=== PATIENT | female | born 1935 | race Caucasian/White ===

== ENCOUNTER 2017-04-21 19:47 | Inpatient (IN) | payer OTHER ==
[~2017-04-21] VITALS: Ht 167.6 cm; Wt 59.0 kg
[~2017-04-21 19:47] MED LIST: ASPIR-LOW81 MG PO; ATENOLOL50 MG PO; ATORVASTATIN CA40 MG PO; MEMANTINE HCL10 MG PO; OMEPRAZOLE20 M2 PO; PRAVASTATIN SOD10 MG PO; SEROQUEL12.5 MG PO; ULTRAM50 MG PO
[2017-04-21 21:05] LABS: HEMATOCRIT 34.9 % (36.0-46.0); MCH 32.6 PG (29.0-34.0); MCHC 31.8 G/DL (30.0-36.0); MCV 102.6 FL (83-99); MEAN PLAT.VOLUME 10.7 uM^3 (9.5-12.4); PLATELET COUNT 155 K/uL (156-360); RBC DIS.WIDTH-CV 13.4 % (11.8-14.6); RBC DIS.WIDTH-SD 51.1 % (39-53); WHITE BLOOD COUNT 9.5 K/uL (4.1-10.2)
[2017-04-21 21:05] LABS: POINT-OF-CARE METER ID UU14100415
[2017-04-21 21:12] LABS: CHLORIDE 107 mEq/L (99-109); POTASSIUM 4.7 mEq/L (3.7-5.4); SODIUM 142 mEq/L (136-147)
[2017-04-21 21:15] LABS: GLUCOSE 140 mg/dL (70-99)
[2017-04-21 21:16] LABS: ANION GAP 8 MEQ/L (2-14); TOTAL BILIRUBIN 0.4 mg/dL (0.0-1.0)
[2017-04-21 21:18] LABS: ALKALINE PHOSPHATASE 350 IU/L (3-129); GFR ESTIMATE (CALCULATED) 33 mL/min/
[2017-04-21 21:19] LABS: UREA NITROGEN (BUN) 31 mg/dL (9-23)
[2017-04-21 22:01] LABS: ADD MIUA? NO; BILIRUBIN NEGATIVE; BLOOD NEGATIVE; COLOR STRAW ((YELLOW)); GLUCOSE (STRIP) NEGATIVE; KETONES NEGATIVE; LEUKOCYTES NEGATIVE; NITRITE NEGATIVE; PROTEIN (STRIP) NEGATIVE; SPECIFIC GRAVITY 1.005 (1.000-1.030); UCUL ADDED? NO; UROBILINOGEN 0.2 MG/DL (0.2-1.0)
[2017-04-22] MEDS ORDERED: SULAR20 MG PO (00:40)
[2017-04-22] MEDS ORDERED: ZOLOFT25 MG PO (00:41)
[2017-04-22] MEDS ORDERED: CENTRUM SILVER1 EAC3 PO (00:41)
[2017-04-22] MEDS ORDERED: QUETIAPINE FUMA25 MG PO (00:41)
[2017-04-22] MEDS ORDERED: STOOL SOFTENER100 M1 PO (00:42)
[2017-04-22] MEDS ORDERED: CALCIUM 600 +1 EA12 PO (00:42)
[2017-04-22] MEDS ORDERED: CRANBERRY250 MG PO (00:42)
[2017-04-22 03:14] VITALS: BP 177/77
[2017-04-22 07:20] VITALS: BP 146/72
[2017-04-22 11:19] VITALS: BP 167/97
[2017-04-22 12:35] LABS: HEMATOCRIT 38.9 % (36.0-46.0); MCH 32.7 PG (29.0-34.0); MCHC 32.1 G/DL (30.0-36.0); MCV 101.8 FL (83-99); MEAN PLAT.VOLUME 10.7 uM^3 (9.5-12.4); PLATELET COUNT 162 K/uL (156-360); RBC DIS.WIDTH-CV 13.5 % (11.8-14.6); RED BLOOD COUNT 3.82 M/uL (3.80-5.20); WHITE BLOOD COUNT 9.3 K/uL (4.1-10.2)
[2017-04-22 12:48] LABS: CHLORIDE 105 mEq/L (99-109); POTASSIUM 4.5 mEq/L (3.7-5.4); SODIUM 144 mEq/L (136-147)
[2017-04-22 12:52] LABS: ANION GAP 10 MEQ/L (2-14)
[2017-04-22 12:53] LABS: GLUCOSE 86 mg/dL (70-99); TOTAL BILIRUBIN 0.8 mg/dL (0.0-1.0)
[2017-04-22 12:54] LABS: ALKALINE PHOSPHATASE 363 IU/L (3-129)
[2017-04-22 12:55] LABS: GFR ESTIMATE (CALCULATED) 42 mL/min/
[2017-04-22 12:56] LABS: DIRECT BILIRUBIN 0.4 mg/dL (0.0-0.3); UREA NITROGEN (BUN) 27 mg/dL (9-23)
[2017-04-22 16:07] VITALS: BP 123/56
[2017-04-22 18:54] VITALS: BP 152/69
[2017-04-22 23:14] VITALS: BP 140/81
[2017-04-23 03:51] VITALS: BP 149/68
[2017-04-23 07:14] LABS: HEMATOCRIT 35.1 % (36.0-46.0); MCH 33.5 PG (29.0-34.0); MCHC 32.8 G/DL (30.0-36.0); MCV 102.3 FL (83-99); MEAN PLAT.VOLUME 11.1 uM^3 (9.5-12.4); PLATELET COUNT 152 K/uL (156-360); RBC DIS.WIDTH-CV 13.8 % (11.8-14.6); RBC DIS.WIDTH-SD 52.2 % (39-53); RED BLOOD COUNT 3.43 M/uL (3.80-5.20); WHITE BLOOD COUNT 8.5 K/uL (4.1-10.2)
[2017-04-23 07:31] VITALS: BP 127/63
[2017-04-23 07:34] LABS: PROTHROMBIN TIME 10.6 (9.2-11.2)
[2017-04-23 07:38] LABS: ANION GAP 6 MEQ/L (2-14); CHLORIDE 108 MEQ/L (99-109); GFR ESTIMATE (CALCULATED) 46 mL/min/; GLUCOSE 75 mg/dL (70-99); IRON 100 MCG/DL (35-150); POTASSIUM 4.2 MEQ/L (3.7-5.4); SAMPLE HEMOLYSIS CHECK 0; SAMPLE ICTERIC CHECK 0; SAMPLE LIPEMIA CHECK 0; SODIUM 142 MEQ/L (136-147); UREA NITROGEN (BUN) 26 mg/dL (9-23)
[2017-04-23 08:13] LABS: FERRITIN 376 NG/ML (10-291)
[2017-04-23 10:20] LABS: ALKALINE PHOSPHATASE 317 IU/L (3-129); DIRECT BILIRUBIN 0.2 mg/dL (0.0-0.3); TOTAL BILIRUBIN 0.6 MG/DL (0.0-1.0)
[2017-04-23 11:05] LABS: HPCA INDEX 0.16
[2017-04-23 11:07] LABS: ANTI-HEPATITIS A VIRUS (IGM) Nonreactive; ANTI-HEPATITIS B CORE (IGM) Nonreactive; HAV INDEX 0.13; HBC IgM INDEX 0.06
[2017-04-23 11:31] VITALS: BP 137/67
[2017-04-23 15:10] VITALS: BP 139/65
[2017-04-23 19:42] VITALS: BP 105/70
[2017-04-23 23:10] VITALS: BP 113/55
[2017-04-24 03:56] VITALS: BP 111/69
[2017-04-24 07:38] VITALS: BP 136/65
[2017-04-24 07:45] LABS: BASOPHIL COUNT 0.1 K/uL (0-0.1); EOSINOPHIL (%) 2.9 % (0-5); EOSINOPHIL COUNT 0.3 K/uL (0-0.3); HEMATOCRIT 35.6 % (36.0-46.0); IMMATURE GRANULOCYTE (%) 0.5 % (0.0-0.7); IMMATURE GRANULOCYTE COUNT 0.1 K/uL; INSTRUMENT ABS NEUTROPHIL CT 5.4 K/uL; LYMPHOCYTE COUNT 2.6 K/uL (1.0-2.8); MCHC 32.3 G/DL (30.0-36.0); MCV 102.3 FL (83-99); MEAN PLAT.VOLUME 11.1 uM^3 (9.5-12.4); MONOCYTE (%) 11.4 % (3-12); MONOCYTE COUNT 1.1 K/uL (0-0.8); NEUTROPHIL COUNT 5.4 K/uL (1.8-6.4); PLATELET COUNT 164 K/uL (156-360); RBC DIS.WIDTH-CV 13.8 % (11.8-14.6); RBC DIS.WIDTH-SD 51.7 % (39-53); RED BLOOD COUNT 3.48 M/uL (3.80-5.20); WHITE BLOOD COUNT 9.4 K/uL (4.1-10.2)
[2017-04-24 08:40] LABS: ALKALINE PHOSPHATASE 368 IU/L (3-129); ANION GAP 6 MEQ/L (2-14); CHLORIDE 104 MEQ/L (99-109); GFR ESTIMATE (CALCULATED) 42 mL/min/; GLUCOSE 75 mg/dL (70-99); SAMPLE HEMOLYSIS CHECK 0; SAMPLE ICTERIC CHECK 0; SAMPLE LIPEMIA CHECK 0; SODIUM 141 MEQ/L (136-147); UREA NITROGEN (BUN) 26 mg/dL (9-23)
[2017-04-24 08:41] LABS: TOTAL BILIRUBIN 0.8 MG/DL (0.0-1.0)
[2017-04-24 11:50] VITALS: BP 105/49
[2017-04-24] MEDS ORDERED: ASPIR-LOW81 MG PO (15:23)
[2017-04-24 15:58] VITALS: BP 122/62
== END 2017-04-24 17:15 | disposition home health service (06) | DRG 69 ==
LOC: EME 19:47 → EDOF 04-22 01:03 → 5WEST 04-22 03:00 → 5SOUTH 04-22 13:02 → 5WEST 04-22 13:02 → 5SOUTH 04-22 13:02 → 5WEST 04-22 13:02 → 5SOUTH 04-22 17:37
PROVIDERS: Emergency Medicine; Hospitalist; Internal Medicine; Physician Assistant
DX: G45.9 Transient cerebral ischemic attack, unspecified (principal); F05 Delirium due to known physiological condition; R47.01 Aphasia; E78.5 Hyperlipidemia, unspecified; I65.23 Occlusion and stenosis of bilateral carotid arteries; G30.8 Other Alzheimer's disease; F02.80 Dementia in other diseases classified elsewhere, unspecified severity, without behavioral disturbance, psychotic disturbance, mood disturbance, and anxiety; N18.3 Chronic kidney disease, stage 3 (moderate); I12.9 Hypertensive chronic kidney disease with stage 1 through stage 4 chronic kidney disease, or unspecified chronic kidney disease; E86.0 Dehydration; N17.9 Acute kidney failure, unspecified; F32.9 Major depressive disorder, single episode, unspecified; G31.9 Degenerative disease of nervous system, unspecified; K21.9 Gastro-esophageal reflux disease without esophagitis; Z87.891 Personal history of nicotine dependence
CPT/HCPCS: 70450; 70551; 71020; 74176; 76705; 80048; 80053; 80074; 80076; 81003; 82140; 82607; 82728; 82948; 83540; 84466; 85025; 85027; 85610; 93005; 93306; 93880; 99281; 99285; J1644; J7030

== ENCOUNTER 2017-12-18 11:28 | Emergency (ER) | payer OTHER ==
[~2017-12-18] VITALS: Ht 170.2 cm; Wt 58.1 kg
[~2017-12-18 11:28] MED LIST changes: +CALCIUM 600 +1 EA12 PO; +CENTRUM SILVER1 EAC3 PO; +CRANBERRY250 MG PO; +QUETIAPINE FUMA25 MG PO; +STOOL SOFTENER100 M1 PO; +SULAR20 MG PO; +ZOLOFT25 MG PO
[2017-12-18 12:51] LABS: BASOPHIL (%) 0.6 % (0-1); EOSINOPHIL (%) 2.1 % (0-5); EOSINOPHIL COUNT 0.2 K/uL (0-0.3); HEMATOCRIT 39.3 % (36.0-46.0); HEMOGLOBIN 12.8 G/DL (11.9-15.5); IMMATURE GRANULOCYTE (%) 0.7 % (0.0-0.7); LYMPHOCYTE (%) 10.7 % (15-42); LYMPHOCYTE COUNT 0.8 K/uL (1.0-2.8); MCH 32.5 PG (29.0-34.0); MCHC 32.6 G/DL (30.0-36.0); MCV 99.7 FL (83-99); MONOCYTE (%) 8.9 % (3-12); MONOCYTE COUNT 0.6 K/uL (0-0.8); NEUTROPHIL COUNT 5.5 K/uL (1.8-6.4); PLATELET COUNT 178 K/uL (156-360); RBC DIS.WIDTH-CV 12.4 % (11.8-14.6); RED BLOOD COUNT 3.94 M/uL (3.80-5.20); WHITE BLOOD COUNT 7.1 K/uL (4.1-10.2)
[2017-12-18 13:17] LABS: CHLORIDE 103 mEq/L (99-109); POTASSIUM 4.4 mEq/L (3.7-5.4); SODIUM 141 mEq/L (136-147)
[2017-12-18 13:19] LABS: GLUCOSE 102 mg/dL (70-99)
[2017-12-18 13:23] LABS: CREATININE 1.3 mg/dL (0.6-1.3); GFR ESTIMATE (CALCULATED) 42 mL/min/
[2017-12-18 13:24] LABS: UREA NITROGEN (BUN) 28 mg/dL (9-23)
[2017-12-18 13:27] LABS: TROP-I INTERPRETATION NEGATIVE; TROPONIN-I < 0.01 ng/mL (0.0-0.30)
[2017-12-18] MEDS ORDERED: ZOFRAN ODT4 MG PO (14:54)
[2017-12-18 16:06] VITALS: BP 115/76
== END 2017-12-18 16:09 | disposition home or self-care (01) ==
LOC: EME 11:28
PROVIDERS: Emergency Medicine
DX: R55 Syncope and collapse (principal); I10 Essential (primary) hypertension; E78.5 Hyperlipidemia, unspecified; J44.9 Chronic obstructive pulmonary disease, unspecified; K21.9 Gastro-esophageal reflux disease without esophagitis; F03.90 Unspecified dementia, unspecified severity, without behavioral disturbance, psychotic disturbance, mood disturbance, and anxiety; F41.9 Anxiety disorder, unspecified; F32.9 Major depressive disorder, single episode, unspecified; Z87.891 Personal history of nicotine dependence
CPT/HCPCS: 70450; 80048; 82948; 84484; 85025; 93005